=== PATIENT | female | born 1975 | race African-American/Black ===

== ENCOUNTER → 2018-09-16 | Day surgery (SDC) | payer BC, MEDICARE ==
[~2018-09-16] MED LIST: BACLOFEN10 MG PO; CEFAZOLIN SOD 2 GM/D5W 50ML 50 ML IV ONE; CITALOPRAM HBR40 MG PO; DEXAMETHASONE SOD PHOS INJ 4 MG/ML VIAL ONE; FENTANYL CITRATE/PF 100MCG/2 ML INJ ONE; FERRALET 90 DU1 EACH PO; HYDROMORPHONE 2MG/ML 2 MG/ML ML ONE; HYDROXYZINE HCL25 MG PO; KETOROLAC TROMETHAMINE 30 MG/ML VIAL ONE; LIDOCAINE HCL 2% LOCAL INJ 5 ML SDV VIAL INJ ONE; MIDAZOLAM HCL 2 MG/2 ML VIAL ONE; MONTELUKAST SOD10 MG PO; ONDANSETRON HCL INJ 2MG/ML 2ML 2 MG/ML VIAL ONE; PANTOPRAZOLE SO40 MG PO; PROPOFOL IV EMULSION 10 MG/ML 20 ML VIAL ONE; SERTRALINE HCL50 MG PO; SEVOFLURANE INHAL SOLN 250 ML PEN BTL ONE
--- OUTSIDE RECORDS SUMMARY | 2018-09-16 08:37 | XMS REPORT | Clinical Summary ---
Author Author [facility] Organization [facility] Address Unknown Phone Unavailable Care Team Providers Care Configuration Technician Name Role Phone Kyaw Martinez MD PCP Allergies Not on File Medications Not on file Active Problems Not on file Encounters Care Team Description Date Type Specialty Ele Nini Luz Marina, DO Screening breast examination 11/02/2017 Hospital Radiology Encounter Ele, Nini Luz Marina, DO Screening breast examination (Primary Dx) 10/31/2017 Transcribe Access Orders after 09/15/2017 Social History Date Tobacco Use Types Packs/Day Years Used Never Assessed Sex Assigned at Date Recorded Not on file Industry Job Start Date Occupation Not on file Not on file Not on file Travel End Travel History Travel Start No recent travel history available. Last Filed Vital Signs Not on file Plan of Treatment Health Maintenance Due Date Last Done Comments CERVICAL CANCER SCREENING 08/31/1995 INFLUENZA VACCINE 12/05/2018 Procedures Comments Procedure Name Priority Date/Time Associated Diagnosis MAMMO BREAST SCREEN Routine 11/02/2017 Screening breast TOMOSYNTHESIS BILATERAL 9:00 AM CDT examination after 09/15/2017 Results * Mammo Breast Screen Tomosynthesis Bilateral (11/02/2017 9:00 AM CDT) Narrative Performed At PROCEDURE:MAMMO BREAST SCREEN TOMOSYNTHESIS BILATERAL11/02/2017 8:47 AM [facility] This patient's mammogram was interpreted with the assistance of computer-aided detection (CAD). Digital breast tomosynthesis (3D) imaging was performed. CLINICAL HISTORY:42-year-old female referred for screening mammogram.She reports no new or current breast complaints. FAMILY HISTORY:Family history of breast carcinoma diagnosed in patient's paternal aunt at unspecified age. COMPARISON:None available. BREAST DENSITY:The breasts are heterogeneously dense, which may obscure small masses. DIGITAL SCREENING MAMMOGRAPHY FINDINGS: There are no dominant masses, suspicious microcalcifications or unexplained architectural distortion to suggest malignancy. IMPRESSION: BI-RADS Category 1-Negative. RECOMMENDATION: Annual mammography. This facility is accredited by [employer] for Mammography. A negative x-ray report should not delay biopsy if a dominant or clinically suspicious mass is present. Not all cancers are identified by x-ray. [id number] The results of this exam have been sent to the patient. Performing Organization Address City/State/Zipcode Phone Number [facility] [phone] [place] [address] after 09/15/2017 Insurance Payer Benefit Subscriber ID Type Phone Address Plan / Group BCBS BCBS xxxxxxxxxxxx PPO CHOICE PPO/[employer] [place] PPO Advance Directives Patient has advance care planning documents on file. For more information, alphonso johns contact: Dg Morales [address] [place] [address]
[2018-09-16 09:26] LABS: PREGNANCY TEST, URINE NEGATIVE (NEGATIVE)
[2018-09-16 09:28] LABS: BILIRUBIN,URINE NEGATIVE (NEGATIVE); CLARITY,URINE SL CLOUDY (CLEAR); COLOR,URINE RED (YELLOW); KETONES,URINE NEGATIVE (NEGATIVE); LEUKOCYTE ESTERASE ,URINE NEGATIVE (NEGATIVE); NITRITE,URINE NEGATIVE (NEGATIVE); PROTEIN,URINE DIPSTICK NEGATIVE (NEGATIVE); URINE UROBILINOGEN 0.2 mg/dL (0.2 - 1)
[2018-09-16 12:18] VITALS: BP 138/85
--- NOTE | 2018-09-16 18:38 | Operative Report ---
DATE OF PROCEDURE: 09/16/2018 SURGEON: Donal Ventura MD PREOPERATIVE DIAGNOSES: Menorrhagia, anemia, fibroid uterine, and inadequate endometrial biopsy. POSTOPERATIVE DIAGNOSES: Menorrhagia, anemia, fibroid uterine, and inadequate endometrial biopsy. OPERATIVE PROCEDURES: Hysteroscopy, dilation and curettage. ANESTHESIA: General with Dr. Polo and Allison Underwood, executive administrative assistant. INDICATIONS FOR OPERATION: The patient is a 43-year-old, 5, para 2-1-2-2, with last menstrual period on September 04, 2018, status post tubal ligation in 2001, who presents for D and C secondary to inadequate endometrial biopsy with history of heavy periods. The patient is also anemic and has sickle cell trait. She has known uterine fibroids at the 3.9 cm anterior lower segment and 4.7 cm posterior lower segment fibroid, both encroaching on the endometrial cavity. She is therefore here for hysteroscopy and D and C to rule out endometrial cancer and to visualize the nature of the fibroids, to see if it is amenable to hysteroscopic resection. DESCRIPTION OF PROCEDURE: The patient was taken to the operating room and placed on the table in supine position. General anesthesia was administered. The patient was then placed in the lithotomy position. The perineum was prepared and draped in the usual sterile manner. Pelvic exam revealed a 14 to 16-week size nodular anteverted uterus, not mobile with no adnexal masses. The bladder was drained by in and out catheterization. A weighted speculum was placed in the posterior vaginal wall and then with right angle retractor, the anterior lip of the cervix was grasped with single-tooth tenaculum. Then, cervix was dilated up to #19 Jimenes dilators. Then, the hysteroscope was placed after the uterus had been sounded to 10 cm. Upon visualization, we immediately saw we were within the endometrial cavity and multiple pedunculated intracavitary fibroids were noted. There was one on the right side, which was occluding the right ostia and there was one on the left side, which was lower down. These were both 3 to 4 cm in size. We were able to visualize the left ostia, the right tubal ostia could not be visualized due to the blockage of visualization by this pedunculated fibroid. At this point, the endometrium was visualized. It seemed to be quite thin. After examining, it was determined the patient would be amenable to hysteroscopic myomectomy. Then, the hysteroscope was removed. Fluid deficit was minimal and we then proceeded with curettage. A sharp curette was used. The endometrial cavity was curetted on all four powell, small amount of tissue was obtained and sent to pathology for definitive diagnosis. At this point, once as much tissue as could be reasonably obtained, the procedure was deemed terminated. All the fluid and instruments were removed from the vagina. There were no complications noted. Estimated blood loss was 20 mL. The patient tolerated the procedure well, was transferred from the operating room to the recovery room in stable condition. MD DEMETRICE Razo/FATIMAH /[id number]
== END | disposition home or self-care (01) ==
LOC: OR 08:34
PROVIDERS: ATTEND Obstetrics & Gynecology
DX: N92.0 Excessive and frequent menstruation with regular cycle (principal); D25.9 Leiomyoma of uterus, unspecified; D64.9 Anemia, unspecified; D57.3 Sickle-cell trait; I10 Essential (primary) hypertension; K21.9 Gastro-esophageal reflux disease without esophagitis
CPT/HCPCS: 58558; 81003; 81025; 88305; 93005; J0690; J1100; J1170; J1885; J2001; J2250; J2405; J2704

== ENCOUNTER → 2019-03-17 | Day surgery (SDC) | payer BC ==
[2019-03-11 17:07] LABS: BASOPHILS % 0.4 % (0.0-1.0); EOSINOPHILS # (AUTO) 0.3 (0.0-0.4); EOSINOPHILS % 3.4 % (0.0-6.0); HEMOGLOBIN 11.6 g/dL (12.0-16.0); LYMPHOCYTES # (AUTO) 2.3 (1.0-3.2); LYMPHOCYTES % 29.9 % (18.0-39.1); MEAN CORPUSCULAR HEMOGLOBIN 19.9 pg (28-32); MEAN CORPUSCULAR HGB CONC 30.5 g/dL (31-35); MEAN CORPUSCULAR VOLUME 65.3 fL (81-99); MONOCYTES # (AUTO) 0.6 (0.2-0.8); MONOCYTES % 7.8 % (4.4-11.3); NEUTROPHILS # (AUTO) 4.5 (2.1-6.9); NEUTROPHILS % 58.2 % (38.7-80.0); PLATELET COUNT 292 x10e3/uL (140-360); RED BLOOD COUNT 5.82 x10e6/uL (3.6-5.1); RED CELL DISTRIBUTION WIDTH 18.9 % (11.7-14.4)
[2019-03-11 17:11] LABS: BILIRUBIN,URINE NEGATIVE (NEGATIVE); CLARITY,URINE SL CLOUDY (CLEAR); COLOR,URINE YELLOW (YELLOW); KETONES,URINE NEGATIVE (NEGATIVE); LEUKOCYTE ESTERASE ,URINE NEGATIVE (NEGATIVE); NITRITE,URINE NEGATIVE (NEGATIVE); PROTEIN,URINE DIPSTICK NEGATIVE (NEGATIVE); URINE UROBILINOGEN 0.2 mg/dL (0.2 - 1)
[2019-03-11 17:27] LABS: ALANINE AMINOTRANSFERASE 16 IU/L (0-55); ALBUMIN 3.9 g/dL (3.5-5.0); ALBUMIN/GLOBULIN RATIO 0.8 (0.8-2.0); ALKALINE PHOSPHATASE 46 IU/L (40-150); BLOOD UREA NITROGEN 10 mg/dL (7-26); BUN/CREATININE RATIO 13 (6-25); CARBON DIOXIDE 27 mmol/L (22-29); CHLORIDE 96 mmol/L (98-107); CREATININE, SERUM 0.78 mg/dL (0.57-1.11); EST GLOMERULAR FILTRATION RATE > 60 ML/MIN (60-); GLUCOSE 87 mg/dL (74-118); SODIUM 132 mmol/L (136-145)
[~2019-03-17] MED LIST changes: +ACETAMINOPHEN 1000 MG/100 ML 100 ML IV ONE; +CEFAZOLIN SOD 1 GM/NS 50ML 100 ML IV ONE; -CEFAZOLIN SOD 2 GM/D5W 50ML 50 ML IV ONE; +FAMOTIDINE 20 MG/2 ML VIAL IV ONE; +FERROUS SULFAT325 M1 PO; +GLYCOPYRROLATE INJ 1MG/ 5 ML SYR ONE; -HYDROMORPHONE 2MG/ML 2 MG/ML ML ONE; +LISINOPRIL-HCT1 EAC2 PO; +LIVER AID PO; +NEOSTIGMINE 5 MG/5ML SYR ONE; +PHENYLEPHRINE HCL 1% 10 MG/ML VIAL ONE; +ROCURONIUM BROMIDE 10 MG/ML 5ML VIAL ONE; +SENNA-S LAXATI1 EACH PO; +SILVER NITRATE SWABS ONE; +VASOPRESSIN INJ 20 UNIT/ML VIAL ONE
[2019-03-17 12:50] VITALS: BP 117/88
--- NOTE | 2019-03-17 13:43 | Operative Report ---
DATE OF PROCEDURE: 03/17/2019 SURGEON: Donal Ventura MD PREOPERATIVE DIAGNOSES: 1. Menorrhagia. 2. Anemia. 3. Fibroid uterus that had been intracavitary fibroids. 4. Sickle cell disease. POSTOPERATIVE DIAGNOSES: 1. Menorrhagia. 2. Anemia. 3. Fibroid uterus that had been intracavitary fibroids. 4. Sickle cell disease. 5. Intracavitary fibroids. TITLE OF PROCEDURES: Hysteroscopic myomectomy via Symphion procedure and endometrial ablation via hydrothermal ablation procedure. RAIL MAINTENANCE WORKER: None. ANESTHESIA: General with Dr. Gusman and Dr. Adkins, assistant refinery operator. INDICATION FOR OPERATION: The patient is a 43-year-old, 5, para 3-0-2-2 with last menstrual period October 04, 2018, on Depo Lupron to shrink fibroids, status post tubal ligation with history of menorrhagia and anemia with hemoglobin in the 8 range and she had a previous hysteroscopy prior to the Lupron revealing two 4 cm intracavitary fibroids. She was treated with Lupron for 6 months and she is therefore taken to the operating room at this time for excision of the 2 fibroids, which hopefully shrunk down to 2 and 3 cm and following this, hydrothermal ablation to prevent any further abnormal bleeding. She is therefore taken to the operating room at this time. FINDINGS AT SURGERY: There was a 2 to 3 cm intracavitary fibroid on the right and a 3 cm intracavitary fibroid on the left. The left one was on the fundus. The right one was on the right lateral sidewall. The procedure was easily performed and both ostia were visualized after the excision and a good ablation was obtained. Fluid deficit was 800 mL combined for both procedures. DESCRIPTION OF PROCEDURE: The patient was taken to the operating room and placed on the table in supine position. General anesthesia was administered. The patient was placed in the lithotomy position. The perineum was prepped and draped in the usual sterile manner. The bladder was drained by in and out catheterization. The pelvic exam revealed a 12 to 14 week size anteverted uterus, not mobile with the uterus stuck against the anterior abdominal wall. There were no adnexal masses. At this point, a weighted speculum was placed in the posterior vaginal wall. Then, with the aid of a right angle retractor, the anterior lip of the cervix was grasped with single-tooth tenaculum. Then, using Jimenes dilators, the endocervical canal was dilated up to #15. Then, the hysteroscope was placed and the cavity was visualized with 2 fibroids still present, slightly smaller than on her previous hysteroscopy 6 months ago. Dilute Pitressin was injected around the cervix at 2, 4, 8 and 10 o'clock, 5 mL at each site to reduce blood loss and then we proceeded with the Symphion procedure, the hysteroscopic myomectomy. The Symphion device was placed into the hysteroscope and was used to scrape away the stalk of the first fibroid on the left. Once the stalk was excised, the fibroid was free. There was virtually no bleeding noted and we proceeded to use the Symphion procedure to cut up the fibroid and excised it in pieces. Entire fibroid was excised. Then, attention was turned to the right fibroid. Again, the stalk was excised freeing up the fibroid and it was cut up in pieces and sucked out of the endometrial cavity. This was done. It took approximately an hour to do the excision of both fibroids. At this point, both ostia were well visualized. The entire cavity was free of any fibroids or debris and the decision was made to proceed with the hydrothermal ablation. The scope was changed out and the HTA scope was placed and the endometrial cavity was visualized and after ensuring that a good fluid seal was obtained, we proceeded with the HTA ablation. The water was warmed up to 90 degrees Celsius and the ablation was performed over 10 minutes. There was no fluid loss at all during the procedure. After the 10 minutes, the fluid was cooled down and we inspected and found a good ablation obtained and at this point, the procedure was deemed terminated. All the fluid and instruments were removed from the vagina. The tenaculum was removed and there was no bleeding at the tenaculum site. There were no complications noted. Estimated blood loss was 10 mL. The patient tolerated the procedure well and was transferred from the operating room to the recovery room in stable condition. MD DEMETRICE Razo/FATIMAH /[id number]
== END | disposition home or self-care (01) ==
LOC: OR 07:06
PROVIDERS: ATTEND Obstetrics & Gynecology
DX: D25.9 Leiomyoma of uterus, unspecified (principal); D57.1 Sickle-cell disease without crisis; G47.00 Insomnia, unspecified; I10 Essential (primary) hypertension; K21.9 Gastro-esophageal reflux disease without esophagitis; F32.9 Major depressive disorder, single episode, unspecified; F41.0 Panic disorder [episodic paroxysmal anxiety]; Z01.810 Encounter for preprocedural cardiovascular examination; Z01.812 Encounter for preprocedural laboratory examination
CPT/HCPCS: 36415; 58561; 58563; 80053; 81003; 84702; 85025; 88305; 93005; J0131; J0690; J1100; J1885; J2001; J2250; J2370; J2405; J2704; J3010; J3490

== ENCOUNTER 2020-01-02 12:39 | Emergency (ER) | payer BC ==
[~2020-01-02] VITALS: Ht 149.9 cm; Wt 72.6 kg
[~2020-01-02 12:39] MED LIST changes: -ACETAMINOPHEN 1000 MG/100 ML 100 ML IV ONE; -CEFAZOLIN SOD 1 GM/NS 50ML 100 ML IV ONE; -DEXAMETHASONE SOD PHOS INJ 4 MG/ML VIAL ONE; -FAMOTIDINE 20 MG/2 ML VIAL IV ONE; -FENTANYL CITRATE/PF 100MCG/2 ML INJ ONE; -GLYCOPYRROLATE INJ 1MG/ 5 ML SYR ONE; -KETOROLAC TROMETHAMINE 30 MG/ML VIAL ONE; -LIDOCAINE HCL 2% LOCAL INJ 5 ML SDV VIAL INJ ONE; -MIDAZOLAM HCL 2 MG/2 ML VIAL ONE; -NEOSTIGMINE 5 MG/5ML SYR ONE; -ONDANSETRON HCL INJ 2MG/ML 2ML 2 MG/ML VIAL ONE; -PHENYLEPHRINE HCL 1% 10 MG/ML VIAL ONE; -PROPOFOL IV EMULSION 10 MG/ML 20 ML VIAL ONE; -ROCURONIUM BROMIDE 10 MG/ML 5ML VIAL ONE; -SEVOFLURANE INHAL SOLN 250 ML PEN BTL ONE; -SILVER NITRATE SWABS ONE; -VASOPRESSIN INJ 20 UNIT/ML VIAL ONE
[2020-01-02] MEDS ORDERED: ULTRAM50 MG PO (14:41)
[2020-01-02] MEDS ORDERED: CLINDAMYCIN HC150 MG PO (14:42)
--- OUTSIDE RECORDS SUMMARY | 2020-01-02 14:49 | XMS REPORT | Clinical Summary ---
Author Author [facility] Address Unknown Phone Unavailable Care Team Providers Care Caterpillar Tractor Operator Name Role Phone Kyaw Martinez MD PCP Allergies No Known Allergies Medications End Date Status Medication Sig Dispensed Refills Start Date Active lisinopril Take 10 mg by 0 (PRINIVIL,ZESTRIL) 10 mg mouth daily. tablet Active baclofen (LIORESAL) 10 MG Take 10 mg by 0 tablet mouth 3 (three) times a day. Active pantoprazole sodium Take 40 mg by 0 (PANTOPRAZOLE ORAL) mouth daily. Active hydrOXYzine (ATARAX) 25 Take 25 mg by 0 MG tablet mouth nightly. Active citalopram (CeleXA) 40 MG Take 40 mg by 0 tablet mouth daily. Active UNABLE TO FIND Liver Aid 0 Sustains Energy, Cleanses Impurities (OTC) Active montelukast (SINGULAIR) Take 10 mg by 0 10 mg tablet mouth daily. Active ferrous sulfate 300 mg 5 mL once a 150 mL 3 (60 mg iron)/5 mL syrup day mixed 9 with juice - Use a straw Active Problems Not on file Encounters Care Team Description Date Type Specialty Isabel Chavez RN 03/31/2019 Nurse Triage Access de Damon Rolon MD Iron deficiency anemia, unspecified iron deficiency anemia type (Primary Dx); History of hemoglobinopathy; Menometrorrhagia; History of uterine fibroid; Sickle cell trait (HCC); Hx of alpha thalassemia 02/26/2019 Office Visit Oncology de Damon Rolon MD Iron deficiency anemia, unspecified iron deficiency anemia type (Primary Dx); History of hemoglobinopathy; Menometrorrhagia; History of uterine fibroid; Sickle cell trait (HCC); Hx of alpha thalassemia; Hypertension, unspecified type 01/14/2019 Office Visit Oncology after 01/01/2019 Family History Medical History Relation Name Comments Heart failure Mother Breast cancer Paternal Aunt Diabetes Paternal Grandmother Relation Name Status Comments Mother Paternal Aunt Paternal Grandmother Social History Date Tobacco Use Types Packs/Day Years Used Never Smoker Smokeless Tobacco: Never Used Drinks/Week oz/Week Comments Alcohol Use not very often Yes Sex Assigned at Date Recorded Not on file Industry Job Start Date Occupation Not on file Not on file Not on file Travel End Travel History Travel Start No recent travel history available. Last Filed Vital Signs Reading Time Taken Comments Vital Sign 133/78 02/26/2019 11:25 AM CDT Blood Pressure 77 02/26/2019 11:25 AM CDT Pulse 35.8 C (96.4 F) 02/26/2019 11:25 AM CDT Temperature 20 01/14/2019 10:21 AM CDT Respiratory Rate 100% 02/26/2019 11:25 AM CDT Oxygen Saturation - - Inhaled Oxygen Concentration 68 kg (150 lb) 02/26/2019 11:25 AM CDT Weight 149.9 cm (4' 11") 02/26/2019 11:25 AM CDT Height 30.3 02/26/2019 11:25 AM CDT Body Mass Index Plan of Treatment Health Maintenance Due Date Last Done Comments CERVICAL CANCER SCREENING 08/31/1995 INFLUENZA VACCINE 02/05/2020 Results Not on fileafter 01/01/2019 Insurance Type Payer Benefit Subscriber ID Effective Phone Address Plan / Dates Group PPO BCBS BCBS xxxxxxxxxxxx 2017- CHOICE Present PPO/[employer] [place] PPO Advance Directives For more information, please contact: [phone] Patient Range Aide Explanation Type Date Recorded Advance Directives, Living Will and Medical Power of Property Underwriter
--- NOTE | 2020-01-03 03:09 | Emergency Department Note ---
History of Present Illnes History of Present Illness Chief Complaint: Skin Rash or Abscess History of Present Illness This is a 44 year old female 10 days of pain in right labia. The patient shaves this area. Similar symptoms in the past which resolved on its own with warm sitz bath, and has never had to seek medical care for this condition. Denies any dysuria hematuria. She denies any vaginal discharge. Casino Assistant Manager Required: No Onset (how long ago): week(s) Radiation: Reports non-radiation Severity: severe Onset quality: sudden Duration (how long): week(s) Progression: waxing and waning Context: Denies recent surgery, Denies recent travel, Denies trauma/injury Exacerbating factors: other (touch) Treatments prior to arrival: none Past Medical/Family History Physician Review I have reviewed the patient's past medical and family history. Any updates have been documented here. Past Medical History Recent Fever: No Past Medical History: Hypertension, Depression Other Medical History: < thyoid panic attacks Past Surgical History: (X3) Social History Smoking Cessation: Never Smoker Any Illegal Drug Use: No Review of Systems Review of Systems Constitutional: Denies chills, Denies fever, Denies malaise EENTM: Reports no symptoms Cardiovascular: Reports no symptoms Respiratory: Reports no symptoms Gastrointestinal: Reports no symptoms Genitourinary: Reports as per HPI Musculoskeletal: Reports no symptoms Neurological: Reports no symptoms Psychological: Reports no symptoms Hematological/Lymphatic: Reports no symptoms Physical Exam Related Data Allergies: Coded Allergies: No Known Allergies (Unverified , 09/16/18) Physical Exam CONSTITUTIONAL Constitutional: Present well-developed, Present well-nourished HENT HENT: Present normocephalic, Present atraumatic, Present oropharynx clear/moist, Present nose normal HENT L/R: Present left ext ear normal, Present right ext ear normal EYES Eyes: Reports PERRL, Reports conjunctivae normal NECK Neck: Present ROM normal PULMONARY Pulmonary: Present effort normal, Present breath sounds normal CARDIOVASCULAR Cardiovascular: Present regular rhythm, Present heart sounds normal, Present capillary refill normal, Present normal rate GASTROINTESTINAL Abdominal: Present soft, Present nontender, Present bowel sounds normal GENITOURINARY Genitourinary: Present other ([id number] tender firm area over bartholin gland. No erythema, no drainage, no swelling) SKIN MUSCULOSKELETAL Musculoskeletal: Present ROM normal NEUROLOGICAL Neurological: Present alert, Present oriented x 3, Present no gross motor or sensory deficits PSYCHOLOGICAL Psychological: Present mood/affect normal, Present judgement normal Assessment & Plan Medical Decision Making MDM Patient with symptoms of small Bartholin cyst, with no erythema and no swelling. There is no obvious place for I&D given no erythema, no swelling, and small tender area not superficial. Symptoms have been gradually increasing over last 10 days, so don't expect rapid progression given current course. Gave patient option of I&D and patient declined. Will give trial of antibiotics with prompt follow-up and strict return precautions. Assessment & Plan Final Impression: (1) Bartholin cyst Home Meds Active Scripts Clindamycin Hcl (CLINDAMYCIN HCL) 150 Mg Capsule, 3 TAB PO TID, #90 0 Refills 2 TABS PO TID Prov:ROBERTO MCCLURE MD 01/02/20 Tramadol Hcl (ULTRAM) 50 Mg Tablet, 50 MG PO Q6H PRN for SEVERE PAIN (7-10), #20 TAB Prov:ROBERTO MCCLURE MD 01/02/20 Reported Medications [Liver Aid] No Conflict Check, 1 TAB PO PRN 03/11/19 Lisinopril/Hydrochlorothiazide (LISINOPRIL-HCTZ 10-12.5 MG TAB) 1 Each Tablet, 1 TAB PO DAILY 03/11/19 Sennosides/Docusate Sodium (Senna-S Laxative Tablet) 1 Each Tablet, 1 TAB PO DA LANG 03/11/19 Ferrous Sulfate (FERROUS SULFATE) 325 Mg Tablet.dr, 325 MG PO DAILY 03/11/19 Pantoprazole Sodium* (PROTONIX) 40 Mg Tablet.dr, 40 MG PO DAILY, TAB 09/12/18 Baclofen (BACLOFEN) 10 Mg Tablet, 10 MG PO TID, #90 TAB 09/12/18 Sertraline Hcl (SERTRALINE HCL) 50 Mg Tablet, 50 MG PO DAILY, #30 TAB 09/12/18 Hydroxyzine Hcl (HYDROXYZINE HCL) 25 Mg Tablet, 25 MG PO HS, #30 TAB 09/12/18 Montelukast Sodium (MONTELUKAST SODIUM) 10 Mg Tablet, 10 MG PO DAILY, #30 TAB 09/12/18 Citalopram Hydrobromide (CITALOPRAM HBR) 40 Mg Tablet, 40 MG PO DAILY 09/12/18 ROBERTO MCCLURE MD Jan 02, 2020 14:37
[2020-01-06] MEDS ORDERED: PROMETHAZINE HC25 M1 PO (11:01)
== END 2020-01-02 15:03 | disposition home or self-care (01) ==
LOC: FSED 14:43
DX: N75.0 Cyst of Bartholin's gland (principal); I10 Essential (primary) hypertension; F32.9 Major depressive disorder, single episode, unspecified; F41.0 Panic disorder [episodic paroxysmal anxiety]
CPT/HCPCS: 99282

== ENCOUNTER → 2020-01-06 | Day surgery (SDC) | payer BC, OTHER ==
[~2020-01-06] MED LIST changes: +BUPIVACAINE 0.25%/EPI 30ML SDV INJ ONE; +CLINDAMYCIN HC150 MG PO; +CLINDAMYCIN PHOS 900MG/ 50ML 50 ML IV ONE; +DEXAMETHASONE SOD PHOS INJ 4 MG/ML VIAL ONE; +FENTANYL CITRATE/PF 100MCG/2 ML INJ ONE; +GENTAMICIN 80MG/NS 100 ML 200 ML IV ONE; +HYDROGEN PEROXIDE 120 ML BTL ONE; +KETOROLAC TROMETHAMINE 30 MG/ML VIAL ONE; +LIDOCAINE HCL 2% LOCAL INJ 5 ML SDV VIAL INJ ONE; +MIDAZOLAM HCL 2 MG/2 ML VIAL ONE; +MORPHINE SULFATE INJ 4 MG/ML INJ 1ML ONE; +ONDANSETRON HCL INJ 2MG/ML 2ML 2 MG/ML VIAL ONE; +PROMETHAZINE HC25 M1 PO; +PROPOFOL IV EMULSION 10 MG/ML 20 ML VIAL ONE; +SEVOFLURANE INHAL SOLN 250 ML PEN BTL ONE; +ULTRAM50 MG PO
[2020-01-06 10:10] LABS: BASOPHILS # (AUTO) 0.1 (0.0-0.1); BASOPHILS % 0.3 % (0.0-1.0); EOSINOPHILS # (AUTO) 0.2 (0.0-0.4); EOSINOPHILS % 0.8 % (0.0-6.0); HEMATOCRIT 34.9 % (34.2-44.1); HEMOGLOBIN 11.2 g/dL (12.0-16.0); LYMPHOCYTES # (AUTO) 1.4 (1.0-3.2); LYMPHOCYTES % 6.2 % (18.0-39.1); MEAN CORPUSCULAR HEMOGLOBIN 20.4 pg (28-32); MEAN CORPUSCULAR HGB CONC 32.1 g/dL (31-35); MEAN CORPUSCULAR VOLUME 63.6 fL (81-99); MONOCYTES # (AUTO) 1.2 (0.2-0.8); MONOCYTES % 5.6 % (4.4-11.3); NEUTROPHILS # (AUTO) 18.8 (2.1-6.9); NEUTROPHILS % 86.5 % (38.7-80.0); PLATELET COUNT 392 x10e3/uL (140-360); RED BLOOD COUNT 5.49 x10e6/uL (3.6-5.1); RED CELL DISTRIBUTION WIDTH 13.2 % (11.7-14.4)
[2020-01-06 10:27] LABS: ANION GAP 18.8 mmol/L (8-16); CALCIUM 9.1 mg/dL (8.4-10.2); CREATININE, SERUM 1.19 mg/dL (0.57-1.11); POTASSIUM 4.8 mmol/L (3.5-5.1)
[2020-01-06 10:36] LABS: CLARITY,URINE CLOUDY (CLEAR); COLOR,URINE RED (YELLOW); LEUKOCYTE ESTERASE ,URINE TRACE (NEGATIVE); NITRITE,URINE NEGATIVE (NEGATIVE)
[2020-01-06 10:37] LABS: BILIRUBIN,URINE SMALL (NEGATIVE); KETONES,URINE NEGATIVE (NEGATIVE); PROTEIN,URINE DIPSTICK 1+ (NEGATIVE); URINE UROBILINOGEN 1 mg/dL (0.2 - 1)
[2020-01-06 17:30] VITALS: BP 115/84
--- NOTE | 2020-01-06 18:19 | Operative Report ---
DATE OF PROCEDURE: 01/06/2020 SURGEON: Donal Ventura MD PREOPERATIVE DIAGNOSIS: Bartholin's abscess. POSTOPERATIVE DIAGNOSIS: Bartholin's abscess. TITLE OF PROCEDURE: Marsupialization of Bartholin's abscess. ANESTHESIA: General with Dr. Polo. INDICATION FOR THE OPERATION: The patient is a 44-year-old 5, para 2-0-2-2, status post tubal ligation, who has had severe right vulvar pain worsening over the past week. Exam revealed a Bartholin's abscess that was 6 x 4 cm and extremely tender. The patient is here for urgent marsupialization of Bartholin's abscess. She is therefore taken to the operating room at this time. FINDINGS OF SURGERY: There was a 6 x 4 cm Bartholin's abscess on the right side. About 100 mL of pus was obtained and about 75 mL of blood was lost. The pus was sent for culture. DESCRIPTION OF PROCEDURE: The patient taken to the operating room and placed on the table in supine position. General anesthesia was administered. The patient was placed in the lithotomy position. The perineum was prepared and draped in the usual sterile manner. Pelvic exam revealed a 4 x 6 cm right indurated Bartholin's abscess. At this point, the patient was examined and the mucocutaneous junction was visualized and incised, and then dissecting up to the cyst wall was performed. Some bleeding occurred and cautery was applied. Then, upon reaching the cyst wall, it was grasped and opened, and grabbed with a hemostat at the same time to make sure the cyst wall was identifiable. At this point, 100 mL of pus came out and was sent for culture. It was foul smelling. Once we made care to express all the pus, we then irrigated with a 10% solution of hydrogen peroxide diluted in saline. After this was done and irrigated multiple times, irrigated with saline and then we proceeded to close. There were few bleeders, which were coagulated with the Bovie. Then, the cyst wall was tied to the vaginal mucosa with [id number] stitches, interrupted stitches of 2-0 chromic suture, making sure the cyst wall was attached to the vaginal mucosa to leave the cyst open for drainage. This was done at 5 different points along the cyst wall and then once it was apparent, the cyst wall was opened. We irrigated once again. There were few bleeders, which were coagulated with the Bovie and with some oozing, and the iodoform packing was placed and finding no further evidence of bleeding. The procedure was deemed terminated. All the instruments were removed. The counts were correct. There were no complications noted. Estimated blood loss was 75 mL. The patient tolerated the procedure well and was transferred from the operating room to recovery room in stable condition. She received gentamicin and Cleocin prophylaxis for the procedure. Donal Ventura MD DKMyron/MODL /[id number]
== END | disposition home or self-care (01) ==
LOC: OR 09:15
PROVIDERS: ATTEND Obstetrics & Gynecology
DX: N75.1 Abscess of Bartholin's gland (principal); I10 Essential (primary) hypertension; D57.3 Sickle-cell trait; F32.9 Major depressive disorder, single episode, unspecified; F41.0 Panic disorder [episodic paroxysmal anxiety]; Z11.59 Encounter for screening for other viral diseases
CPT/HCPCS: 36415; 56440; 80048; 81003; 84702; 85025; 87071; 87075; 87186; 87205; J1100; J1580; J1885; J2001; J2250; J2270; J2405; J2704; J3010; U0002

== ENCOUNTER 2021-01-19 16:36 | Inpatient (IN) | payer BC ==
[~2021-01-19] VITALS: Ht 149.9 cm; Wt 78.7 kg
[2021-01-19] MEDS: SODIUM CHLORIDE 0.9% 1000ML 1,000 ML IV SCH ×3 (10:00→20:35)
[~2021-01-19 16:36] MED LIST changes: -BUPIVACAINE 0.25%/EPI 30ML SDV INJ ONE; -CLINDAMYCIN PHOS 900MG/ 50ML 50 ML IV ONE; -DEXAMETHASONE SOD PHOS INJ 4 MG/ML VIAL ONE; -FENTANYL CITRATE/PF 100MCG/2 ML INJ ONE; -GENTAMICIN 80MG/NS 100 ML 200 ML IV ONE; -HYDROGEN PEROXIDE 120 ML BTL ONE; -KETOROLAC TROMETHAMINE 30 MG/ML VIAL ONE; -LIDOCAINE HCL 2% LOCAL INJ 5 ML SDV VIAL INJ ONE; -MIDAZOLAM HCL 2 MG/2 ML VIAL ONE; -MORPHINE SULFATE INJ 4 MG/ML INJ 1ML ONE; -ONDANSETRON HCL INJ 2MG/ML 2ML 2 MG/ML VIAL ONE; -PROPOFOL IV EMULSION 10 MG/ML 20 ML VIAL ONE; -SEVOFLURANE INHAL SOLN 250 ML PEN BTL ONE
[2021-01-19] MEDS ORDERED: ONDANSETRON HCL INJ 2MG/ML 2ML 2 MG/ML VIAL IV STA (18:59)
[2021-01-19] MEDS ORDERED: MORPHINE SULFATE INJ 4 MG/ML INJ 1ML IV PRN (19:00)
[2021-01-19] MEDS ORDERED: SODIUM CHLORIDE 0.9% 50ML 50 ML ONE ×2 (19:40→20:47)
[2021-01-19] MEDS ORDERED: IOPAMIDOL 370 MG/ML 200 ML INFUS..BTL INJ ONE (19:40)
[2021-01-19] MEDS ORDERED: MORPHINE SULFATE INJ 4 MG/ML INJ 1ML IV STA (20:25)
[2021-01-19] MEDS ORDERED: Vancomycin IV 1 GM in SODIUM CHLORIDE 0.9% 250ML 250 ML IV ONE (20:30)
[2021-01-19] MEDS ORDERED: SODIUM CHLORIDE 0.9% 1000ML 1,000 ML IV SCH (20:30)
[2021-01-19] MEDS: PIPERACILLIN/TAZOBACTAM 3.375 GM in SODIUM CHLORIDE 0.9% 50ML 50 ML IV SCH ×2 (20:35→22:42)
[2021-01-19] MEDS ORDERED: ONDANSETRON HCL INJ 2MG/ML 2ML 2 MG/ML VIAL IV PRN (20:45)
[2021-01-19] MEDS ORDERED: MORPHINE SULFATE INJ 4 MG/ML INJ 1ML ONE (20:47)
[2021-01-19] MEDS ORDERED: PIPERACILLIN/TAZOBACTAM 3.375 GM VIAL ONE (20:48)
[2021-01-19] MEDS ORDERED: SODIUM CHLORIDE 0.9% 250ML 250 ML ONE (20:48)
[2021-01-19] MEDS ORDERED: Vancomycin IV 1 GM VIAL ONE (20:48)
[2021-01-20] VITALS (8 sets, daily range): BP systolic 109–127; BP diastolic 72–90
[2021-01-20] MEDS: HYDROMORPHONE 1MG/1ML INJ IV PRN ×3 (02:32→09:29)
[2021-01-20] MEDS: KETOROLAC TROMETHAMINE 30 MG/ML VIAL IV PRN ×2 (03:06→21:08)
[2021-01-20] MEDS: PIPERACILLIN/TAZOBACTAM 3.375 GM in SODIUM CHLORIDE 0.9% 50ML 50 ML IV SCH ×3 (05:03→17:24)
[2021-01-20] MEDS: SODIUM CHLORIDE 0.9% 1000ML 1,000 ML IV SCH ×2 (06:45→16:03)
[2021-01-20 07:21] LABS: BASOPHILS # (AUTO) 0.1 (0.0-0.1); BASOPHILS % 0.3 % (0.0-1.0); EOSINOPHILS % 0.2 % (0.0-6.0); HEMATOCRIT 27.6 % (34.2-44.1); LYMPHOCYTES # (AUTO) 1.3 (1.0-3.2); LYMPHOCYTES % 6.7 % (18.0-39.1); MEAN CORPUSCULAR HEMOGLOBIN 23.3 pg (28-32); MEAN CORPUSCULAR HGB CONC 32.6 g/dL (31-35); MEAN CORPUSCULAR VOLUME 71.5 fL (81-99); MONOCYTES # (AUTO) 1.8 (0.2-0.8); NEUTROPHILS # (AUTO) 16.5 (2.1-6.9); NEUTROPHILS % 83.2 % (38.7-80.0); PLATELET COUNT 314 x10e3/uL (140-360); RED BLOOD COUNT 3.86 x10e6/uL (3.6-5.1); RED CELL DISTRIBUTION WIDTH 15.1 % (11.7-14.4)
[2021-01-20 07:41] LABS: ALBUMIN 2.7 g/dL (3.5-5.0); ALBUMIN/GLOBULIN RATIO 0.6 (0.8-2.0); ANION GAP 12.5 mmol/L (8-16); CREATININE, SERUM 1.31 mg/dL (0.57-1.11); POTASSIUM 3.5 mmol/L (3.5-5.1)
[2021-01-20] MEDS ORDERED: BENADRYL25 M1 PO (18:57)
[2021-01-20] MEDS ORDERED: TYLENOL EXTRA500 MG PO (18:57)
[2021-01-20] MEDS ORDERED: METOPROLOL SUCC50 MG PO (18:57)
[2021-01-20] MEDS ORDERED: CYMBALTA30 MG PO (18:57)
[2021-01-20] MEDS ORDERED: LINZESS145 MCG (18:57)
[2021-01-20] MEDS ORDERED: BUSPIRONE HCL10 MG PO (18:57)
[2021-01-21] VITALS (8 sets, daily range): BP systolic 104–122; BP diastolic 70–81
[2021-01-21] MEDS: SODIUM CHLORIDE 0.9% 1000ML 1,000 ML IV SCH ×4 (00:12→22:00)
[2021-01-21] MEDS: PIPERACILLIN/TAZOBACTAM 3.375 GM in SODIUM CHLORIDE 0.9% 50ML 50 ML IV SCH ×5 (06:00→18:33)
[2021-01-21] MEDS: KETOROLAC TROMETHAMINE 30 MG/ML VIAL IV PRN ×2 (08:45→15:06)
[2021-01-21] MEDS ORDERED: LIDOCAINE HCL 2% JELLY 5 ML TUBE ONE ×2 (11:57)
[2021-01-21] MEDS ORDERED: ACETAMINOPHEN 325 MG TAB PO PRN (12:00)
[2021-01-21] MEDS ORDERED: PANTOPRAZOLE SOD 40 MG TABEC PO PRN (12:00)
[2021-01-21] MEDS ORDERED: BUPIVACAINE HCL 0.5% INJ 30 ML VIAL INJ ONE (12:19)
[2021-01-21] MEDS ORDERED: PROPOFOL IV EMULSION 10 MG/ML 20 ML VIAL ONE (12:25)
[2021-01-21] MEDS ORDERED: SEVOFLURANE INHAL SOLN 250 ML PEN BTL ONE (12:25)
[2021-01-21] MEDS ORDERED: ONDANSETRON HCL INJ 2MG/ML 2ML 2 MG/ML VIAL ONE (12:25)
[2021-01-21] MEDS ORDERED: LIDOCAINE HCL 2% LOCAL INJ 5 ML SDV VIAL INJ ONE (12:25)
[2021-01-21] MEDS ORDERED: DEXAMETHASONE SOD PHOS INJ 4 MG/ML SDV ONE (12:25)
[2021-01-21] MEDS ORDERED: POVIDONE IODINE 0.05% 0.05 % ML PO ONE (12:25)
[2021-01-21] MEDS ORDERED: FENTANYL CITRATE/PF 100MCG/2 ML INJ ONE ×2 (12:57→16:41)
[2021-01-21] MEDS: CLINDAMYCIN PHOS 900MG/ 50ML 50 ML IV SCH ×2 (13:50→22:00)
[2021-01-21] MEDS: HYDROMORPHONE 1MG/1ML INJ IV PRN (13:50)
[2021-01-21] MEDS: DULOXETINE HCL 30 MG DELAYED RELEASE PO SCH (16:00)
[2021-01-21] MEDS: BUSPIRONE HCL 10 MG TABLET PO SCH (16:00)
[2021-01-21] MEDS: DIPHENHYDRAMINE HCL 25 MG CAP PO PRN (16:00)
[2021-01-21] MEDS: HYDROCODONE/APAP 7.5MG-325MG 1 EA TAB PO PRN ×2 (17:00→21:25)
[2021-01-22] MEDS: PIPERACILLIN/TAZOBACTAM 3.375 GM in SODIUM CHLORIDE 0.9% 50ML 50 ML IV SCH ×3 (00:11→11:15)
[2021-01-22 00:15] VITALS: BP 114/75
[2021-01-22] MEDS: HYDROCODONE/APAP 7.5MG-325MG 1 EA TAB PO PRN ×3 (01:18→10:09)
[2021-01-22] MEDS: DIPHENHYDRAMINE HCL 25 MG CAP PO PRN (01:18)
[2021-01-22 05:13] VITALS: BP 117/77
[2021-01-22] MEDS: CLINDAMYCIN PHOS 900MG/ 50ML 50 ML IV SCH ×2 (05:28→13:00)
[2021-01-22] MEDS: LINACLOTIDE 145 MCG CAPSULE PO SCH ×2 (06:21→09:21)
[2021-01-22 06:49] LABS: BASOPHILS % 0.1 % (0.0-1.0); HEMATOCRIT 24.4 % (34.2-44.1); HEMOGLOBIN 8.1 g/dL (12.0-16.0); LYMPHOCYTES # (AUTO) 0.9 (1.0-3.2); LYMPHOCYTES % 6.5 % (18.0-39.1); MEAN CORPUSCULAR HEMOGLOBIN 23.7 pg (28-32); MEAN CORPUSCULAR HGB CONC 33.2 g/dL (31-35); MEAN CORPUSCULAR VOLUME 71.3 fL (81-99); MONOCYTES # (AUTO) 0.6 (0.2-0.8); MONOCYTES % 4.4 % (4.4-11.3); NEUTROPHILS # (AUTO) 12.1 (2.1-6.9); PLATELET COUNT 371 x10e3/uL (140-360); RED BLOOD COUNT 3.42 x10e6/uL (3.6-5.1); RED CELL DISTRIBUTION WIDTH 15.7 % (11.7-14.4)
[2021-01-22 07:07] LABS: ALBUMIN 2.6 g/dL (3.5-5.0); ALBUMIN/GLOBULIN RATIO 0.6 (0.8-2.0); ANION GAP 11.9 mmol/L (8-16); CALCIUM 7.7 mg/dL (8.4-10.2); CREATININE, SERUM 0.97 mg/dL (0.57-1.11); POTASSIUM 3.9 mmol/L (3.5-5.1)
[2021-01-22 08:14] VITALS: BP 101/78
[2021-01-22 08:56] VITALS: BP 101/78
[2021-01-22] MEDS ORDERED: MONTELUKAST SODIUM 10 MG TAB PO SCH (09:00)
[2021-01-22] MEDS ORDERED: METOPROLOL SUCCINATE 50 MG TAB XL PO SCH (09:00)
[2021-01-22] MEDS: BUSPIRONE HCL 10 MG TABLET PO SCH (09:21)
[2021-01-22] MEDS: DULOXETINE HCL 30 MG DELAYED RELEASE PO SCH (09:24)
[2021-01-22] MEDS: SODIUM CHLORIDE 0.9% 1000ML 1,000 ML IV SCH ×2 (10:00→12:01)
[2021-01-22 11:51] VITALS: BP 116/87
[2021-01-22] MEDS: KETOROLAC TROMETHAMINE 30 MG/ML VIAL IV PRN (12:01)
[2021-01-22 15:42] VITALS: BP 99/68
== END 2021-01-22 17:30 | disposition home or self-care (01) | DRG 603 ==
LOC: FSED 17:08 → ERHOLD 20:36 → MED/SURG3 23:39
PROVIDERS: ADMIT Family Medicine; ATTEND Family Medicine
PROC: 0W9G3ZZ Drainage of Peritoneal Cavity, Percutaneous Approach (ICD-10-PCS; principal; 2021-01-19)
DX: L02.215 Cutaneous abscess of perineum (principal); I10 Essential (primary) hypertension; G47.00 Insomnia, unspecified; F41.9 Anxiety disorder, unspecified; F32.9 Major depressive disorder, single episode, unspecified; Z20.822 Contact with and (suspected) exposure to COVID-19
CPT/HCPCS: 36415; 72193; 80053; 81003; 81025; 83735; 85025; 87071; 87075; 87205; 96361; 99284; J1100; J1170; J1885; J2001; J2270; J2405; J2543; J3010; J3370; J7030; J7050; Q9967; U0002

== ENCOUNTER → 2021-07-05 | Day surgery (SDC) | payer BC ==
[~2021-07-05] MED LIST changes: +BENADRYL25 M1 PO; +BUSPIRONE HCL10 MG PO; +CYMBALTA30 MG PO; +FENTANYL CITRATE/PF 100MCG/2 ML INJ ONE; +FIBER LAX625 MG PO; +LIDOCAINE HCL 2% LOCAL INJ 5 ML SDV VIAL INJ ONE; +LINZESS145 MCG; +METOPROLOL SUCC50 MG PO; +MIDAZOLAM HCL 2 MG/2 ML VIAL ONE; +OLANZAPINE5 MG PO; +POLYETHYLENE GL17 GM PO; +PROPOFOL IV EMULSION 10 MG/ML 20 ML VIAL ONE; +TYLENOL EXTRA500 MG PO
[2021-07-05 10:15] VITALS: BP 112/85
== END | disposition home or self-care (01) ==
LOC: OR 05:36
PROVIDERS: ATTEND Internal Medicine Gastroenterology
DX: K29.50 Unspecified chronic gastritis without bleeding (principal); K63.9 Disease of intestine, unspecified; K31.89 Other diseases of stomach and duodenum; K44.9 Diaphragmatic hernia without obstruction or gangrene; K59.00 Constipation, unspecified; K62.5 Hemorrhage of anus and rectum; K64.8 Other hemorrhoids; K64.4 Residual hemorrhoidal skin tags; I10 Essential (primary) hypertension; F41.9 Anxiety disorder, unspecified; F32.A Depression, unspecified; Z01.810 Encounter for preprocedural cardiovascular examination; Z01.812 Encounter for preprocedural laboratory examination; Z20.822 Contact with and (suspected) exposure to COVID-19; Z79.899 Other long term (current) drug therapy; Z68.32 Body mass index [BMI] 32.0-32.9, adult; Z87.898 Personal history of other specified conditions
CPT/HCPCS: 43239; 45380; 81025; 93005; J2001; J2250; J2704; J3010; U0002; 45378

== ENCOUNTER 2021-12-29 15:58 | Inpatient (IN) | payer BC ==
[2021-12-28 22:44] VITALS: BP 131/94
[~2021-12-29] VITALS: Ht 149.9 cm; Wt 64.9 kg
[~2021-12-29 15:58] MED LIST changes: -FENTANYL CITRATE/PF 100MCG/2 ML INJ ONE; -LIDOCAINE HCL 2% LOCAL INJ 5 ML SDV VIAL INJ ONE; -MIDAZOLAM HCL 2 MG/2 ML VIAL ONE; -PROPOFOL IV EMULSION 10 MG/ML 20 ML VIAL ONE
[2021-12-29] MEDS ORDERED: SODIUM CHLORIDE 0.9% 1000ML 1,000 ML IV STA ×2 (16:34→22:34)
[2021-12-29] MEDS ORDERED: ONDANSETRON HCL INJ 2MG/ML 2ML 2 MG/ML VIAL IV STA (16:52)
[2021-12-29] MEDS ORDERED: FENTANYL CITRATE/PF 100MCG/2 ML INJ IV NR ×2 (17:00→19:45)
[2021-12-29] MEDS ORDERED: CLINDAMYCIN PHOS 900MG/ 50ML 50 ML IV ONE (17:00)
[2021-12-29 17:06] LABS: BASOPHILS % 0.2 % (0.0-1.0); EOSINOPHILS # (AUTO) 0.1 (0.0-0.4); EOSINOPHILS % 0.7 % (0.0-6.0); HEMATOCRIT 31.7 % (34.2-44.1); HEMOGLOBIN 10.1 g/dL (12.0-16.0); LYMPHOCYTES # (AUTO) 1.5 (1.0-3.2); LYMPHOCYTES % 7.8 % (18.0-39.1); MEAN CORPUSCULAR HEMOGLOBIN 21.6 pg (28-32); MEAN CORPUSCULAR HGB CONC 31.9 g/dL (31-35); MEAN CORPUSCULAR VOLUME 67.9 fL (81-99); MONOCYTES # (AUTO) 1.6 (0.2-0.8); MONOCYTES % 8.2 % (4.4-11.3); NEUTROPHILS % 82.6 % (38.7-80.0); PLATELET COUNT 346 x10e3/uL (140-360); RED BLOOD COUNT 4.67 x10e6/uL (3.6-5.1); RED CELL DISTRIBUTION WIDTH 14.7 % (11.7-14.4)
[2021-12-29 17:08] LABS: CLARITY,URINE CLEAR (CLEAR); COLOR,URINE YELLOW (YELLOW); LEUKOCYTE ESTERASE ,URINE NEGATIVE (NEGATIVE); NITRITE,URINE NEGATIVE (NEGATIVE)
[2021-12-29 17:09] LABS: KETONES,URINE NEGATIVE (NEGATIVE); PROTEIN,URINE DIPSTICK NEGATIVE (NEGATIVE); URINE UROBILINOGEN 0.2 mg/dL (0.2 - 1)
[2021-12-29 17:21] LABS: BACTERIA,URINE MANY /HPF; EPITHELIAL CELLS,URINE MANY /LPF; RBC,URINE 0-5 /HPF (0-5); WBC,URINE (MAN) 0-5 /HPF (0-5); YEAST,URINE FEW
[2021-12-29 17:39] LABS: ALANINE AMINOTRANSFERASE 6 IU/L (0-55); ALBUMIN 2.9 g/dL (3.5-5.0); ALBUMIN/GLOBULIN RATIO 0.6 (0.8-2.0); ALKALINE PHOSPHATASE 88 IU/L (40-150); ANION GAP 14.7 mmol/L (8-16); BLOOD UREA NITROGEN 9 mg/dL (7-26); BUN/CREATININE RATIO 9 (6-25); CARBON DIOXIDE 22 mmol/L (22-29); CHLORIDE 107 mmol/L (98-107); CREATININE, SERUM 0.95 mg/dL (0.57-1.11); GLUCOSE 105 mg/dL (74-118); POTASSIUM 3.7 mmol/L (3.5-5.1); SODIUM 140 mmol/L (136-145)
[2021-12-29] MEDS ORDERED: IOPAMIDOL 370 MG/ML 100 ML INFUS..BTL INJ ONE (19:25)
[2021-12-29] MEDS ORDERED: Morphine 4mg INJECTION 4 MG/ML INJ IV PRN (20:45)
[2021-12-29] MEDS ORDERED: ONDANSETRON HCL INJ 2MG/ML 2ML 2 MG/ML VIAL IV PRN (20:45)
[2021-12-29] MEDS: SODIUM CHLORIDE 0.9% 1000ML 1,000 ML IV SCH (20:45)
[2021-12-29] MEDS: HYDROMORPHONE 1MG/1ML INJ IV PRN (22:15)
[2021-12-29 22:45] VITALS: BP 131/94
[2021-12-29] MEDS ORDERED: HYDROXYZINE HCL50 MG PO (23:23)
[2021-12-29] MEDS ORDERED: METOPROLOL SUCC25 MG PO (23:23)
[2021-12-29] MEDS ORDERED: DICYCLOMINE HCL10 MG PO (23:23)
[2021-12-29] MEDS ORDERED: BUSPIRONE HCL15 MG PO (23:23)
[2021-12-29] MEDS ORDERED: FAMOTIDINE40 MG PO (23:23)
[2021-12-29] MEDS ORDERED: DULOXETINE HCL60 MG PO (23:23)
[2021-12-29] MEDS: HYDROCODONE/APAP 5MG-325MG TAB PO PRN (23:30)
[2021-12-30] MEDS: HYDROMORPHONE 1MG/1ML INJ IV PRN ×4 (01:30→11:41)
[2021-12-30 04:00] VITALS: BP 127/102
[2021-12-30] MEDS: HYDROCODONE/APAP 5MG-325MG TAB PO PRN ×2 (05:16→10:20)
[2021-12-30 05:58] LABS: BASOPHILS # (AUTO) 0.1 (0.0-0.1); BASOPHILS % 0.4 % (0.0-1.0); EOSINOPHILS # (AUTO) 0.2 (0.0-0.4); EOSINOPHILS % 0.9 % (0.0-6.0); HEMATOCRIT 29.2 % (34.2-44.1); HEMOGLOBIN 9.2 g/dL (12.0-16.0); LYMPHOCYTES # (AUTO) 1.8 (1.0-3.2); LYMPHOCYTES % 8.7 % (18.0-39.1); MEAN CORPUSCULAR HEMOGLOBIN 21.5 pg (28-32); MEAN CORPUSCULAR HGB CONC 31.5 g/dL (31-35); MEAN CORPUSCULAR VOLUME 68.4 fL (81-99); MONOCYTES # (AUTO) 1.8 (0.2-0.8); MONOCYTES % 8.5 % (4.4-11.3); NEUTROPHILS # (AUTO) 16.8 (2.1-6.9); NEUTROPHILS % 80.8 % (38.7-80.0); PLATELET COUNT 290 x10e3/uL (140-360); RED BLOOD COUNT 4.27 x10e6/uL (3.6-5.1); RED CELL DISTRIBUTION WIDTH 15.4 % (11.7-14.4)
[2021-12-30] MEDS: SODIUM CHLORIDE 0.9% 1000ML 1,000 ML IV SCH ×3 (06:14→20:47)
[2021-12-30 06:21] LABS: ALBUMIN 2.5 g/dL (3.5-5.0); ALBUMIN/GLOBULIN RATIO 0.6 (0.8-2.0); ALKALINE PHOSPHATASE 58 IU/L (40-150); ANION GAP 11.6 mmol/L (8-16); BLOOD UREA NITROGEN 7 mg/dL (7-26); BUN/CREATININE RATIO 8 (6-25); CALCIUM 7.5 mg/dL (8.4-10.2); CARBON DIOXIDE 21 mmol/L (22-29); CHLORIDE 107 mmol/L (98-107); CREATININE, SERUM 0.91 mg/dL (0.57-1.11); GLUCOSE 93 mg/dL (74-118); POTASSIUM 3.6 mmol/L (3.5-5.1); SODIUM 136 mmol/L (136-145)
[2021-12-30 06:22] LABS: ALANINE AMINOTRANSFERASE < 6 IU/L (0-55)
[2021-12-30 06:41] LABS: FERRITIN 34.55 ng/mL (4.63-204.00); THYROID STIMULATING HORMONE 1.295 uIU/mL (0.350-4.940)
[2021-12-30 07:47] LABS: LYMPHOCYTES % (MANUAL) 10 % (19-48); MONOCYTES % (MANUAL) 8 % (3.4-9.0); NEUTROPHILS % (MANUAL) 82 % (40-74)
[2021-12-30 07:49] LABS: ANISOCYTOSIS MODERATE; HYPOCHROMASIA MODERATE; MICROCYTOSIS MODERATE; PLATELET ESTIMATE ADEQUATE; PLATELET MORPHOLOGY COMMENT NORMAL; RBC MORPHOLOGY COMMENT ABNORMAL
[2021-12-30 08:36] VITALS: BP 101/67
[2021-12-30] MEDS ORDERED: DOCUSATE SODIUM 100 MG CAP PO SCH (09:00)
[2021-12-30] MEDS ORDERED: SENNOSIDES 8.6 MG TAB PO SCH (09:00)
[2021-12-30] MEDS ORDERED: FERROUS SULFATE 325 MG TAB PO SCH (09:00)
[2021-12-30 11:11] VITALS: BP 101/67
[2021-12-30 12:02] VITALS: BP 125/94
[2021-12-30] MEDS ORDERED: SEVOFLURANE INHAL SOLN 250 ML PEN BTL ONE (13:15)
[2021-12-30] MEDS ORDERED: DEXAMETHASONE SOD PHOS INJ 4 MG/ML SDV ONE (13:15)
[2021-12-30] MEDS ORDERED: KETOROLAC TROMETHAMINE 30 MG/ML VIAL ONE (13:15)
[2021-12-30] MEDS ORDERED: PROPOFOL IV EMULSION 10 MG/ML 20 ML VIAL ONE (13:15)
[2021-12-30] MEDS ORDERED: ONDANSETRON HCL INJ 2MG/ML 2ML 2 MG/ML VIAL ONE (13:15)
[2021-12-30] MEDS ORDERED: FENTANYL CITRATE/PF 100MCG/2 ML INJ ONE (13:28)
[2021-12-30] MEDS ORDERED: MIDAZOLAM HCL 2 MG/2 ML VIAL ONE (13:28)
[2021-12-30] MEDS ORDERED: LIDOCAINE HCL 2% JELLY 5 ML TUBE ONE (15:39)
[2021-12-30] MEDS: BUSPIRONE HCL 10 MG TABLET PO SCH (17:21)
[2021-12-30] MEDS: Morphine 4mg INJECTION 4 MG/ML INJ IV PRN (18:05)
[2021-12-30 20:00] VITALS: BP 126/86
[2021-12-30 21:00] VITALS: BP 126/86
[2021-12-30] MEDS: KETOROLAC TROMETHAMINE 30 MG/ML VIAL IV PRN (22:53)
[2021-12-31] VITALS (7 sets, daily range): BP systolic 112–129; BP diastolic 77–86
[2021-12-31] MEDS: HYDROCODONE/APAP 5MG-325MG TAB PO PRN ×4 (03:24→23:44)
[2021-12-31] MEDS: KETOROLAC TROMETHAMINE 30 MG/ML VIAL IV PRN ×2 (05:08→20:08)
[2021-12-31] MEDS: SODIUM CHLORIDE 0.9% 1000ML 1,000 ML IV SCH (05:09)
[2021-12-31 07:08] LABS: BASOPHILS # (AUTO) 0.1 (0.0-0.1); BASOPHILS % 0.3 % (0.0-1.0); HEMATOCRIT 24.6 % (34.2-44.1); LYMPHOCYTES # (AUTO) 1.1 (1.0-3.2); MEAN CORPUSCULAR HEMOGLOBIN 21.4 pg (28-32); MEAN CORPUSCULAR HGB CONC 32.5 g/dL (31-35); MEAN CORPUSCULAR VOLUME 65.8 fL (81-99); MONOCYTES # (AUTO) 0.9 (0.2-0.8); MONOCYTES % 3.2 % (4.4-11.3); NEUTROPHILS # (AUTO) 24.5 (2.1-6.9); NEUTROPHILS % 91.2 % (38.7-80.0); PLATELET COUNT 318 x10e3/uL (140-360); RED BLOOD COUNT 3.74 x10e6/uL (3.6-5.1); RED CELL DISTRIBUTION WIDTH 14.9 % (11.7-14.4)
[2021-12-31] MEDS: BUSPIRONE HCL 10 MG TABLET PO SCH ×2 (07:32→17:00)
[2021-12-31 07:36] LABS: ALBUMIN 2.3 g/dL (3.5-5.0); ALBUMIN/GLOBULIN RATIO 0.6 (0.8-2.0); ANION GAP 13.2 mmol/L (8-16); CALCIUM 7.6 mg/dL (8.4-10.2); CREATININE, SERUM 0.92 mg/dL (0.57-1.11); MAGNESIUM 1.5 MG/DL (1.3-2.1); POTASSIUM 4.2 mmol/L (3.5-5.1)
[2021-12-31] MEDS ORDERED: PANTOPRAZOLE SOD 40 MG TABEC PO PRN (09:00)
[2021-12-31] MEDS: MONTELUKAST SODIUM 10 MG TAB PO SCH (09:00)
[2021-12-31] MEDS: DULOXETINE HCL 30 MG DELAYED RELEASE PO SCH ×2 (09:00→17:00)
[2021-12-31 10:43] LABS: LYMPHOCYTES % (MANUAL) 2 % (19-48); MONOCYTES % (MANUAL) 2 % (3.4-9.0); NEUTROPHILS % (MANUAL) 96 % (40-74)
[2021-12-31 10:44] LABS: HYPOCHROMASIA MODERATE; MICROCYTOSIS MODERATE
[2021-12-31 10:45] LABS: ANISOCYTOSIS SLIGHT; PLATELET ESTIMATE ADEQUATE; PLATELET MORPHOLOGY COMMENT NORMAL
[2021-12-31] MEDS: METOPROLOL SUCCINATE 25 MG TAB XL PO SCH (11:15)
[2021-12-31] MEDS: Morphine 4mg INJECTION 4 MG/ML INJ IV PRN (17:25)
[2021-12-31] MEDS: OLANZAPINE 5 MG TAB PO SCH (21:00)
[2022-01-01] VITALS (8 sets, daily range): BP systolic 104–149; BP diastolic 69–92
[2022-01-01] MEDS: KETOROLAC TROMETHAMINE 30 MG/ML VIAL IV PRN ×3 (03:21→20:50)
[2022-01-01] MEDS: HYDROCODONE/APAP 5MG-325MG TAB PO PRN ×4 (06:09→23:52)
[2022-01-01 07:01] LABS: BASOPHILS # (AUTO) 0.1 (0.0-0.1); BASOPHILS % 0.2 % (0.0-1.0); EOSINOPHILS # (AUTO) 0.2 (0.0-0.4); EOSINOPHILS % 0.7 % (0.0-6.0); HEMATOCRIT 23.1 % (34.2-44.1); HEMOGLOBIN 7.4 g/dL (12.0-16.0); LYMPHOCYTES # (AUTO) 2.4 (1.0-3.2); LYMPHOCYTES % 10.3 % (18.0-39.1); MEAN CORPUSCULAR HEMOGLOBIN 21.6 pg (28-32); MEAN CORPUSCULAR VOLUME 67.5 fL (81-99); MONOCYTES # (AUTO) 1.7 (0.2-0.8); MONOCYTES % 7.6 % (4.4-11.3); NEUTROPHILS # (AUTO) 18.4 (2.1-6.9); NEUTROPHILS % 80.3 % (38.7-80.0); PLATELET COUNT 304 x10e3/uL (140-360); RED BLOOD COUNT 3.42 x10e6/uL (3.6-5.1); RED CELL DISTRIBUTION WIDTH 14.6 % (11.7-14.4)
[2022-01-01 07:23] LABS: ALBUMIN 2.2 g/dL (3.5-5.0); ALBUMIN/GLOBULIN RATIO 0.6 (0.8-2.0); ANION GAP 11.7 mmol/L (8-16); CALCIUM 7.8 mg/dL (8.4-10.2); CREATININE, SERUM 1.05 mg/dL (0.57-1.11); POTASSIUM 3.7 mmol/L (3.5-5.1)
[2022-01-01] MEDS: DULOXETINE HCL 30 MG DELAYED RELEASE PO SCH ×2 (09:43→17:02)
[2022-01-01] MEDS: BUSPIRONE HCL 10 MG TABLET PO SCH ×2 (09:44→17:03)
[2022-01-01] MEDS: MONTELUKAST SODIUM 10 MG TAB PO SCH (09:44)
[2022-01-01] MEDS: METOPROLOL SUCCINATE 25 MG TAB XL PO SCH (09:44)
[2022-01-01] MEDS: SODIUM CHLORIDE 0.9% 1000ML 1,000 ML IV SCH ×2 (12:09→21:02)
[2022-01-01] MEDS: Vancomycin IV 1 GM in SODIUM CHLORIDE 0.9% 250ML 250 ML IV SCH ×2 (13:00→20:50)
[2022-01-01] MEDS: SODIUM FERRIC GLUCONATE COMPLX 125 MG in SODIUM CHLORIDE 0.9% 100 ML IV SCH (15:01)
[2022-01-01] MEDS: OLANZAPINE 5 MG TAB PO SCH (21:01)
[2022-01-02 02:03] VITALS: BP 104/69
[2022-01-02] MEDS: KETOROLAC TROMETHAMINE 30 MG/ML VIAL IV PRN ×2 (03:18→11:31)
[2022-01-02] MEDS: SODIUM CHLORIDE 0.9% 1000ML 1,000 ML IV SCH ×2 (03:19→11:00)
[2022-01-02 05:21] VITALS: BP 126/84
[2022-01-02 06:46] LABS: BASOPHILS # (AUTO) 0.1 (0.0-0.1); BASOPHILS % 0.2 % (0.0-1.0); EOSINOPHILS # (AUTO) 0.3 (0.0-0.4); EOSINOPHILS % 1.3 % (0.0-6.0); HEMOGLOBIN 7.2 g/dL (12.0-16.0); LYMPHOCYTES # (AUTO) 1.9 (1.0-3.2); LYMPHOCYTES % 8.7 % (18.0-39.1); MEAN CORPUSCULAR HEMOGLOBIN 21.2 pg (28-32); MEAN CORPUSCULAR HGB CONC 31.3 g/dL (31-35); MEAN CORPUSCULAR VOLUME 67.8 fL (81-99); MONOCYTES # (AUTO) 2.1 (0.2-0.8); MONOCYTES % 9.8 % (4.4-11.3); NEUTROPHILS # (AUTO) 16.8 (2.1-6.9); NEUTROPHILS % 79.2 % (38.7-80.0); PLATELET COUNT 333 x10e3/uL (140-360); RED BLOOD COUNT 3.39 x10e6/uL (3.6-5.1); RED CELL DISTRIBUTION WIDTH 14.9 % (11.7-14.4)
[2022-01-02 07:10] LABS: ANION GAP 12.7 mmol/L (8-16); CALCIUM 7.9 mg/dL (8.4-10.2); CREATININE, SERUM 0.87 mg/dL (0.57-1.11); POTASSIUM 3.7 mmol/L (3.5-5.1)
[2022-01-02] MEDS ORDERED: ONDANSETRON HCL 4 MG ORAL DISINTEGRATING TAB SL PRN (07:15)
[2022-01-02] MEDS: MONTELUKAST SODIUM 10 MG TAB PO SCH (07:50)
[2022-01-02] MEDS: BUSPIRONE HCL 10 MG TABLET PO SCH ×2 (07:50→16:18)
[2022-01-02] MEDS: DULOXETINE HCL 30 MG DELAYED RELEASE PO SCH ×2 (07:50→16:18)
[2022-01-02] MEDS: METOPROLOL SUCCINATE 25 MG TAB XL PO SCH (07:51)
[2022-01-02] MEDS: HYDROCODONE/APAP 5MG-325MG TAB PO PRN ×2 (07:51→16:18)
[2022-01-02 08:05] VITALS: BP 115/80
[2022-01-02 08:11] LABS: EOSINOPHILS % (MANUAL) 3 % (0-7); LYMPHOCYTES % (MANUAL) 5 % (19-48); METAMYELOCYTES % (MANUAL) 1 % (0-0); MONOCYTES % (MANUAL) 10 % (3.4-9.0); NEUTROPHILS % (MANUAL) 81 % (40-74); PLATELET ESTIMATE ADEQUATE; PLATELET MORPHOLOGY COMMENT NORMAL; RBC MORPHOLOGY COMMENT NORMAL
[2022-01-02 08:14] VITALS: BP 115/80
[2022-01-02] MEDS ORDERED: SODIUM CHLORIDE 0.9% 250ML 250 ML IV ONE (08:30)
[2022-01-02] MEDS: Vancomycin IV 1 GM in SODIUM CHLORIDE 0.9% 250ML 250 ML IV SCH (11:31)
[2022-01-02 11:45] VITALS: BP 98/76
[2022-01-02 15:48] VITALS: BP 114/85
[2022-01-02] MEDS: Morphine 4mg INJECTION 4 MG/ML INJ IV PRN (17:30)
[2022-01-02] MEDS: SODIUM FERRIC GLUCONATE COMPLX 125 MG in SODIUM CHLORIDE 0.9% 100 ML IV SCH (18:00)
[2022-01-02] MEDS ORDERED: HYDROCODON-ACE1 EA11 PO (18:17)
[2022-01-02] MEDS ORDERED: BACTRIM DS TAB1 EACH PO (18:17)
== END 2022-01-02 20:00 | disposition home or self-care (01) | DRG 348 ==
LOC: ER 16:08 → ERHOLD 20:32 → MED/SURG2 22:45
PROVIDERS: ADMIT Internal Medicine; ATTEND Internal Medicine
PROC: 0DQQ0ZZ Repair Anus, Open Approach (ICD-10-PCS; principal; 2021-12-30 14:45)
DX: K61.0 Anal abscess (principal); L02.215 Cutaneous abscess of perineum; I11.9 Hypertensive heart disease without heart failure; E66.9 Obesity, unspecified; F41.9 Anxiety disorder, unspecified; F32.9 Major depressive disorder, single episode, unspecified; Z84.89 Family history of other specified conditions; Z68.28 Body mass index [BMI] 28.0-28.9, adult; D63.8 Anemia in other chronic diseases classified elsewhere; D50.9 Iron deficiency anemia, unspecified
CPT/HCPCS: 36415; 72193; 80048; 80053; 81001; 82607; 82728; 82746; 83036; 83540; 83605; 83735; 84443; 84466; 84702; 85025; 85045; 86850; 86900; 86920; 87040; 87071; 87075; 87086; 87205; 99284; J1100; J1170; J1885; J2001; J2250; J2270; J2405; J2543; J2916; J3010; J3370; J7030; J7050; P9016; Q0162; Q9967